=== PATIENT | female | born 1945 | race African-American/Black ===

== ENCOUNTER 2018-07-15 10:41 | Outpatient (CLI) | payer MEDICARE, BC ==
[2018-07-15] MEDS ORDERED: Iopamidol 370 76% 100 ML VIAL ONE (12:32)
--- NOTE | 2018-07-15 13:29 | CT ---
ABDOMEN CT WITH CONTRAST PELVIC CT WITH CONTRAST: Date: 07/15/18 HISTORY: Anorexia. Weight loss, 10 lbs. COMPARISON: None. TECHNIQUE: Abdomen and pelvic CT are performed with IV and oral contrast. Coronal reformatted images are submitt ed for interpretation. FINDINGS: ABDOMEN CT: Lung bases are clear. Visualized aorta has a normal caliber. No periaortic fat stranding. Portal vein is patent. Liver, spleen, pancreas, and adrenal glands are unremarkable. Symmetric enhancement of the kidneys. No obstructive uropathy. No gastrohepatic, retrocrural, or periportal lymphadenopathy. No mesenteric mass, lymphadenopathy, free air, or free fluid. Gastric mucosa, duodenum, and multiple normal caliber small bowel loops are noted. Ileocecal junction is normal. Normal caliber appendix. Cecum, ascending colon, and transverse colon are unremarkable. L imited evaluation of the descending colon and sigmoid colon due to lack of oral contrast opacificatio n. There is mucosal thickening involving the proximal and mid sigmoid colon, which may be due to inad equate distention. There does appear to be some mucosal thickening at the level of the rectum. Incidental hypodensity involving the liver measuring 0.6 x 1.8 cm has an attenuation coefficient of 5 Hounsfield units, compatible with an incidental cyst. PELVIS CT: Uterus and adnexal structures are unremarkable. No pelvic mass, lymphadenopathy, free air, or free fl uid. Unremarkable urinary bladder. No lytic or blastic lesions in the osseous structures. IMPRESSION: Mucosal thickening involving the sigmoid colon and rectum, which may be due to inadequate distention. Given patient's history, further evaluation with colonoscopy is recommended. POS: CORNELL
== END 2018-07-15 10:42 | disposition home or self-care (01) ==
LOC: BICCT 10:41
PROVIDERS: ATTEND Internal Medicine
DX: R63.0 Anorexia (principal); K63.89 Other specified diseases of intestine; K62.89 Other specified diseases of anus and rectum
CPT/HCPCS: 74177; 82565

== ENCOUNTER 2019-03-28 15:07 | Outpatient (CLI) | payer MEDICARE, BC ==
--- NOTE | 2019-03-28 16:18 | MMO ---
Bilateral MAMMO Bilat Screen [facility]. CLINICAL HISTORY: Patient is 74 years old and is seen for screening. The patient has no family history of breast cancer. The patient has no personal history of cancer. VIEWS: The views performed were: bilateral craniocaudal with tomosynthesis and bilateral mediolateral oblique with tomosynthesis. FILMS COMPARED: The present examination has been compared to prior imaging studies performed at [facility] on 02/12/2015, 02/18/2016, 02/26/2017 and 03/23/2018. MAMMOGRAM FINDINGS: There are scattered fibroglandular densities. There are no suspicious masses, suspicious calcifications, or new areas of architectural distortion. IMPRESSION: THERE IS NO MAMMOGRAPHIC EVIDENCE OF MALIGNANCY. A ROUTINE FOLLOW-UP MAMMOGRAM IN 1 YEAR IS RECOMMENDED. THE RESULTS OF THIS EXAM WERE SENT TO THE PATIENT. ACR BI-RADS Category 1 - Negative MAMMOGRAPHY NOTE: 1. A negative mammogram report should not delay a biopsy if a dominant of clinically suspicious mass is present. 2. Approximately 10% to 15% of breast cancers are not detected by mammography. 3. Adenosis and dense breasts may obscure an underlying neoplasm. Reported by: POONAM LOVE MD Electonically Signed: [id number]
== END 2019-03-28 15:08 | disposition home or self-care (01) ==
LOC: BICMAMMO 15:07
PROVIDERS: ATTEND Internal Medicine
DX: Z12.31 Encounter for screening mammogram for malignant neoplasm of breast (principal)
CPT/HCPCS: 77063; 77067

== ENCOUNTER 2019-10-25 15:27 | Outpatient (CLI) | payer MEDICARE, BC ==
--- NOTE | 2019-10-25 16:40 | ULT ---
Exam: Transabdominal pelvic ultrasound HISTORY: Elevated serum testosterone with facial virtual is some. Postmenopausal female TECHNIQUE: Transabdominal imaging of the pelvis is performed FINDINGS: Suboptimal evaluation the uterus. No obvious myometrial masses. Uterus measures 5.7 x 3.7 x 8.5 cm Endometrium: Diameter cannot be assessed. However, there is fluid in the endometrium Left ovary is not seen. No obvious fluid or masses in the left adnexa Right ovary: Normal cortical echotexture, measuring 2.0 x 2.6 x 1.5 cm IMPRESSION: 1. Suboptimal evaluation the uterus and endometrium. There does appear to be fluid in the endometrium . Better interrogation with pelvic MRI is recommended
== END 2019-10-25 15:28 | disposition home or self-care (01) ==
LOC: BICULT 15:27
PROVIDERS: ATTEND Internal Medicine Endocrinology, Diabetes & Metabolism
DX: L68.0 Hirsutism (principal); R79.89 Other specified abnormal findings of blood chemistry
CPT/HCPCS: 76856; 93976

== ENCOUNTER 2020-12-04 12:46 | Outpatient (CLI) | payer MEDICARE, BC | END 2020-12-04 12:47 | disposition home or self-care (01) | LOC: BICULT 12:46 | PROVIDERS: ATTEND Neurological Surgery | DX: I12.9 Hypertensive chronic kidney disease with stage 1 through stage 4 chronic kidney disease, or unspecified chronic kidney disease (principal); N18.30 Chronic kidney disease, stage 3 unspecified | CPT/HCPCS: 76770; 93975 ==

== ENCOUNTER 2025-05-29 08:57 | Outpatient (CLI) | payer MEDICARE, BC | END 2025-05-29 08:58 | disposition home or self-care (01) | LOC: BICMAMMO 08:57 | PROVIDERS: ATTEND Nurse Practitioner Family | DX: Z78.0 Asymptomatic menopausal state (principal); M85.89 Other specified disorders of bone density and structure, multiple sites | CPT/HCPCS: 77080 ==

== ENCOUNTER 2025-06-05 08:23 | Outpatient (CLI) | payer MEDICARE, BC | END 2025-06-05 08:24 | disposition home or self-care (01) | LOC: CT 08:23 | PROVIDERS: ATTEND Nurse Practitioner Family | DX: Z12.2 Encounter for screening for malignant neoplasm of respiratory organs (principal); F17.210 Nicotine dependence, cigarettes, uncomplicated | CPT/HCPCS: 71271 ==